=== PATIENT | female | born 1960 | race Caucasian/White ===

== ENCOUNTER → 2019-03-01 | Outpatient (CLI) | payer OTHER ==
[~2019-03-01] MED LIST: ASPI-482 PO; CHOL10003 PO; LEVO50TA PO; MULT-208 PO; OMEG1CAP27 PO; VITA600C2 PO
--- NOTE | 2019-03-01 21:43 | PAIN ---
DATE OF SERVICE: 03/01/2019 DIAGNOSES: Cervical radiculopathy with cervical spinal stenosis. HISTORY OF PRESENT ILLNESS: The patient is a 58-year-old female who returns for followup, last seen 10/2016. The patient did very well after cervical epidural steroid injections x 3 with her pain in the right upper extremity with near 80% improvement into the last 3 months. The pain has returned in the right arm and shoulder, some tingling, numbness, and stabbing in the base of the neck and the shoulder on the right side, again very similar to that of which she had in 10/2016. The patient reports pain is tingling, stabbing, aching, sharp, worse with activity, worse with raising her right arm, lifting items, increased activities such as at work as well as at home. The patient reports she did very well for about 2-1/2 years with the pain is now returning without any specific injury or accidents recently. The patient reports it is a 9 on a scale of 10 at its worst, 4 on average, 0 at its least and is a 2 today. The patient reports it is aching and tingling, again stabbing in the base of the shoulder posteriorly, also radiating to the right bicep, right forearm, both anteriorly and posteriorly, some tingling and numbness in the hands and fingers, mostly of the thumb and the first finger on the right hand. The patient reports no symptoms on the left side. The patient reports no new motor or sensory deficits or other complaints. The patient reports most noticeable and awakens her from sleep at night at times she lays on the right side and also with repetitive motion of the right reaching over head with her right hand or lifting items with the right arm. PHYSICAL EXAMINATION: VITAL SIGNS: The patient's blood pressure 109/74, pulse 67, respirations 18, temperature is 97.7 degrees Fahrenheit. Height is 5 feet 5-1/2 inches and weight is 124 pounds. GENERAL: The patient is awake, alert, oriented, appropriate, very pleasant demeanor. HEENT: Shows normocephalic, atraumatic. Extraocular movements are intact and symmetrical. Oral cavity: Mucous membranes are moist and pink. Dentition is intact. NECK: Shows anterior throat supple without palpable lymphadenopathy noted. Swallow reflex symmetrical. CHEST: Shows normal with inspection. Breath sounds are clear to auscultation bilaterally. HEART: Shows S1, S2 clear. No murmurs auscultated. ABDOMEN: Soft, nontender, nondistended. No palpable organomegaly is noted. No rebound or guarding demonstrated. BACK: Shows spine grossly in the midline. Normal appearing thoracic kyphosis, cervical lordotic curvature and lumbar lordotic curvature. Cervical paraspinous musculature shows symmetrical on inspection. On palpation shows some moderate tenderness diffusely, more on the right than the left and inferior cervical paraspinous musculature as well as superior medial trapezius on the right. The patient has good rotational motion of cervical spine, both past 45 degrees, closer to about 90 degrees right and left lateral rotation as well as full extension, full forward flexion without significant pain reported. The patient's upper extremities show deep tendon reflexes 2+ in the biceps and triceps tendons. Motor exam is strong with account management assistant strength rated at 5/5. Bicep and tricep flexion is only 4/5 on the right with biceps and triceps flexion, but 5/5 on the left. Peripheral pulses are 2+ radial distribution. No peripheral edema is noted bilaterally. Shoulder shrug is strong and intact without loss of strength on resistance, some moderate pain in the base of the right neck radiating into posterior shoulder with resistance on the right side. This is true with abduction of the shoulder at 90 degrees as well bilaterally. Peripheral pulses 2+ radial distribution. No peripheral edema is noted. Options were discussed with the patient. The patient's old chart was reviewed as was her current medication regimen updated. Current review of systems is updated today as well. We will preauthorize the patient for a cervical epidural steroid injection as she has done very well with these in the past, again with increasing radiculopathy in the C6-C7 dermatomal distribution on the right. We will plan on translaminar C6-C7 cervical epidural steroid injection on return after preauthorization. The patient, in the meantime, will continue doing physical therapy exercises, stretching and strengthening as she has been doing on her own as well in the meantime. GIL CHOWDARY MD DR: MARGI/cesar JOB#: [id number] / [id number]
== END | disposition home or self-care (01) ==
LOC: PNCL 08:11
PROVIDERS: ATTEND Anesthesiology
DX: M54.12 Radiculopathy, cervical region (principal); M48.02 Spinal stenosis, cervical region
CPT/HCPCS: G0463

== ENCOUNTER → 2019-03-17 | Outpatient (CLI) | payer OTHER ==
[~2019-03-17] MED LIST changes: +IOHEXOL 180 MG/ML 10 ML VIAL. ONE; +methylPREDNISolone ACETATE 40 MG/ML VIAL. ONE; +methylPREDNISolone ACETATE 80 MG/ML VIAL. ONE
--- NOTE | 2019-03-17 18:20 | PAIN ---
DATE OF SERVICE: 03/17/2019 DIAGNOSES: Cervical radiculopathy with cervical spinal stenosis. HISTORY OF PRESENT ILLNESS: The patient is a 58-year-old female who returns for followup status post previous cervical epidural steroid injection and inpatient evaluation and preauthorization for additional. The patient has obtained this and would like to proceed today for pain in the base of the neck, right shoulder, right upper extremity as it was previously. Described as tingling, stabbing, aching, sharp, dull, radiating, becoming more constant in the base of the neck, right posterior shoulder blade into the right shoulder into the arm with numbness and tingling in the thumb and first fingers on the right side. The patient reports no loss of motor function, but the pain is increasing with activity. The patient reports it is awakening her from sleep very rarely. She describes the pain as 7 on a scale of 10 at its worst, 3-4 on average, 0 at its least and is a 4 today. The patient reports no new motor or sensory deficits, no new changes. PHYSICAL EXAMINATION: VITAL SIGNS: The patient's blood pressure 122/77, pulse 69, respirations 16, temperature 97.9 degrees Fahrenheit. Weight is 125 pounds. GENERAL: The patient is awake, alert, oriented, appropriate, very pleasant demeanor. HEENT: Head is normocephalic, atraumatic. Extraocular movements are intact and symmetrical. Oral cavity, mucous membranes are moist and pink. Dentition intact. NECK: Shows anterior throat supple without palpable lymphadenopathy noted. Swallow reflex is symmetrical. CHEST: Shows normal on inspection. Breath sounds clear to auscultation bilaterally. HEART: Shows S1, S2 clear. No murmurs auscultated. ABDOMEN: Soft, nontender, nondistended. No palpable organomegaly is noted. No rebound or guarding demonstrated. BACK: Shows spine grossly in the midline. Cervical paraspinous muscle shows symmetrical on inspection, on palpation shows some moderate tenderness diffusely bilaterally, but only diffusely without significant radiation. The patient has good rotational motion of cervical spine, both laterally greater than 45 degrees, closer to 90 degrees, right and left lateral rotation as well as extension and flexion without pain and with full rotation. EXTREMITIES: Upper extremities show deep tendon reflexes 2+ in the biceps, triceps tendons. Motor exam is strong with poultry inseminator strength rated 5/5, as is bicep and tricep flexion, except for the right bicep which is about 4 on a scale of 5, but intact. Peripheral pulses are 2+ radial distribution. No peripheral edema is noted bilaterally. Options were discussed with the patient. The patient's old chart was reviewed as her current medication regimen updated. Current review of systems updated today as well. We will proceed with a first in this series of cervical epidural steroid injection with fluoroscopic guidance. Risks were again discussed including, but not limited to bleeding, infection, possibility of epidural hematoma, subsequent neurological compromise, dural puncture, headaches, spinal cord and/or nerve damage, side effects of steroid medication and poor results regarding pain control. The patient understands and wishes to proceed. The patient will return to clinic in approximately 2 weeks for followup, was counseled on return appointment, activity level and side effects to be aware of. DIAGNOSES: Cervical radiculopathy with cervical spinal stenosis. PROCEDURE: Cervical epidural steroid injection, translaminar approach at C6-C7 level using C-arm fluoroscopic guidance under sterile prep and drape using local anesthetic. MEDICATION INJECTED: A total of 120 mg Depo-Medrol, plus 5 mL of preservative-free normal saline and 2 mL of Isovue for contrast. CONDITION AT DISCHARGE: Stable. The patient tolerated procedure well, had no complications. GIL CHOWDARY MD DR: MARGI/cesar JOB#: [id number] / [id number]
== END | disposition home or self-care (01) ==
LOC: PNCL 07:39
PROVIDERS: ATTEND Anesthesiology
DX: M48.02 Spinal stenosis, cervical region (principal); M54.12 Radiculopathy, cervical region
CPT/HCPCS: 62321; J1030; J1040; Q9965